=== PATIENT | male | born 2000 | race Caucasian/White ===

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

== ENCOUNTER → 2022-02-21 | Outpatient (REF) | payer BC | LOC: M WUC 09:25 | PROVIDERS: ATTEND Physician Assistant | DX: J02.9 Acute pharyngitis, unspecified (principal) ==

== ENCOUNTER → 2022-02-23 | Outpatient (REF) | payer BC | LOC: M LAB REF 12:00 | PROVIDERS: ATTEND Physician Assistant | DX: B34.9 Viral infection, unspecified (principal) ==

== ENCOUNTER → 2022-04-08 | Outpatient (CLI) | payer BC ==
[2022-04-08 15:39] LABS: BASO # 0.1 10^3/uL (0.0-0.2); BASO % 0.7 % (0.0-1.0); EOS # 0.1 10^3/uL (0.0-0.5); EOS % 1.5 % (0.0-3.0); HEMATOCRIT 47.9 % (42.0-52.0); HEMOGLOBIN 15.8 g/dl (13.5-17.5); LYMPH # 3.3 10^3/uL (1.5-5.0); MEAN CORPUSCULAR VOLUME 84.9 fl (80.0-96.0); MONO # 0.6 10^3/uL (0.0-0.8); NEUTROPHILS # 4.6 10^3/uL (1.5-8.5); NEUTROPHILS % 52.3 % (36.0-66.0); PLATELET COUNT, AUTOMATED 268 10^3/uL (150-450); RED BLOOD COUNT 5.64 10^6/uL (4.30-6.10); WHITE BLOOD COUNT 8.7 10^3/uL (4.0-10.0)
[2022-04-08 16:17] LABS: BLOOD UREA NITROGEN 15 MG/DL (9-23); CALCIUM LEVEL 9.3 MG/DL (8.5-10.1); CARBON DIOXIDE LEVEL 26 MMOL/L (20-31); CHLORIDE LEVEL 102 MMOL/L (98-107); CREATININE FOR GFR 0.77 MG/DL (0.70-1.30); GLUCOSE, FASTING 83 MG/DL (60-100); POTASSIUM SERUM 4.5 MMOL/L (3.5-5.1); SODIUM LEVEL 141 MMOL/L (136-145)
== END ==
LOC: M PLALAB 11:43
PROVIDERS: ATTEND Student in an Organized Health Care Education/Training Program
DX: R53.83 Other fatigue (principal)

== ENCOUNTER → 2022-04-20 | Outpatient (CLI) | payer BC ==
[2022-04-20 14:11] LABS: BILIRUBIN,DIRECT 0.2 MG/DL (<0.4); BILIRUBIN,TOTAL 0.7 MG/DL (0.3-1.2); CHOLESTEROL RISK RATIO 5.16 (<5); HDL CHOLESTEROL 34.3 MG/DL (>40); LDL CHOLESTEROL 106.1 MG/DL (<100); TOTAL PROTEIN 7.1 G/DL (5.7-8.2)
[2022-04-20 14:13] LABS: THYROID STIMULATING HORMONE 4.017 uIU/ML (0.48-4.17)
[2022-04-20 14:23] LABS: HEMOGLOBIN A1c 4.8 % (4.0-6.0)
== END ==
LOC: M PLALAB 10:31
PROVIDERS: ATTEND Student in an Organized Health Care Education/Training Program
DX: Z13.1 Encounter for screening for diabetes mellitus (principal); R53.83 Other fatigue; E66.01 Morbid (severe) obesity due to excess calories

== ENCOUNTER → 2023-05-26 | Outpatient (CLI) | payer BC | LOC: M SLEEP 20:00 | PROVIDERS: ATTEND Physician Assistant | DX: G47.33 Obstructive sleep apnea (adult) (pediatric) (principal); R40.0 Somnolence ==

== ENCOUNTER 2023-06-06 20:17 | Emergency (ER) | payer OTHER, BC ==
[~2023-06-06] VITALS: Ht 190.5 cm; Wt 185.2 kg
[2023-06-06 22:42] VITALS: TEMP 98.6
[2023-06-07] MEDS: IBUPROFEN 600MG TAB PO ONE (06:38)
[2023-06-07 06:43] VITALS: BP 142/83; O2SAT 99
== END 2023-06-07 06:44 | disposition home or self-care (01) ==
LOC: M ED 20:17
DX: M54.50 Low back pain, unspecified (principal)

== ENCOUNTER → 2023-06-15 | Outpatient (CLI) | payer BC ==
[2023-06-15 18:43] LABS: MONO REFLEX EBV VCA IgM NEGATIVE (NEGATIVE)
== END ==
LOC: M PLALAB 16:53
PROVIDERS: ATTEND Student in an Organized Health Care Education/Training Program
DX: R16.1 Splenomegaly, not elsewhere classified (principal)

== ENCOUNTER → 2023-10-13 | Outpatient (CLI) | payer BC ==
[~2023-10-13] MED LIST: C 50TAB PO; MULTTAB61 PO; RISATAB3 PO; VITA100093 PO
[2023-10-13 14:02] LABS: HEMATOCRIT 46.6 % (42.0-52.0); HEMOGLOBIN 15.3 g/dl (13.5-17.5); MEAN CORPUSCULAR HEMOGLOBIN 28.1 pg (27.0-33.0); MEAN CORPUSCULAR HGB CONC 32.8 g/dl (32.0-36.5); MEAN CORPUSCULAR VOLUME 85.5 fl (80.0-96.0); PLATELET COUNT, AUTOMATED 276 10^3/uL (150-450); RED BLOOD COUNT 5.45 10^6/uL (4.30-6.10); WHITE BLOOD COUNT 8.9 10^3/uL (4.0-10.0)
[2023-10-13 14:07] LABS: ALBUMIN 3.7 G/DL (3.2-5.2); ALKALINE PHOSPHATASE 80 U/L (46-116); ALT/SGPT 24 U/L (7.0-40); AST/SGOT 13 U/L (<34); BILIRUBIN,TOTAL 0.6 MG/DL (0.3-1.2); BLOOD UREA NITROGEN 13 MG/DL (9-23); CALCIUM LEVEL 9.5 MG/DL (8.5-10.1); CARBON DIOXIDE LEVEL 29 MMOL/L (20-31); CHLORIDE LEVEL 107 MMOL/L (98-107); CHOLESTEROL LEVEL 177 MG/DL (<200); CHOLESTEROL RISK RATIO 5.41 (<5); CREATININE FOR GFR 0.87 MG/DL (0.70-1.30); GLOMERULAR FILTRATION RATE > 60.0 (>60); GLUCOSE, FASTING 85 MG/DL (60-100); HDL CHOLESTEROL 32.7 MG/DL (>40); LDL CHOLESTEROL 83.9 MG/DL (<100); NON-HDL-C 144.3 MG/DL; POTASSIUM SERUM 4.5 MMOL/L (3.5-5.1); SODIUM LEVEL 141 MMOL/L (136-145); TOTAL PROTEIN 6.9 G/DL (5.7-8.2); TRIGLYCERIDES LEVEL 302 MG/DL (<150)
== END ==
LOC: M PLALAB 10:25
PROVIDERS: ATTEND Student in an Organized Health Care Education/Training Program
DX: I10 Essential (primary) hypertension (principal); E66.01 Morbid (severe) obesity due to excess calories

== ENCOUNTER → 2023-10-13 | Outpatient (CLI) | payer BC | LOC: M SOG 07:59 | PROVIDERS: ATTEND Physician Assistant | DX: M25.571 Pain in right ankle and joints of right foot (principal); R22.41 Localized swelling, mass and lump, right lower limb ==

== ENCOUNTER 2023-10-16 19:32 | Observation (INO) | payer BC ==
[~2023-10-16] VITALS: Ht 190.5 cm; Wt 182.8 kg
[2023-10-16] MEDS: ACETAMINOPHEN 500 MG TAB PO ONE (20:12)
[2023-10-16 20:35] LABS: BASO % 0.2 % (0.0-1.0); EOS % 0.1 % (0.0-3.0); HEMATOCRIT 40.7 % (42.0-52.0); HEMOGLOBIN 14.1 g/dl (13.5-17.5); LYMPH # 2.6 10^3/uL (1.5-5.0); LYMPH % 18.6 % (24.0-44.0); MEAN CORPUSCULAR HEMOGLOBIN 28.6 pg (27.0-33.0); MEAN CORPUSCULAR HGB CONC 34.6 g/dl (32.0-36.5); MEAN CORPUSCULAR VOLUME 82.6 fl (80.0-96.0); MONO # 1.8 10^3/uL (0.0-0.8); MONO % 12.9 % (2.0-8.0); NEUTROPHILS # 9.6 10^3/uL (1.5-8.5); NEUTROPHILS % 67.8 % (36.0-66.0); PLATELET COUNT, AUTOMATED 191 10^3/uL (150-450); RED BLOOD COUNT 4.93 10^6/uL (4.30-6.10); WHITE BLOOD COUNT 14.1 10^3/uL (4.0-10.0)
[2023-10-16 21:01] LABS: ALBUMIN 3.5 G/DL (3.2-5.2); ALKALINE PHOSPHATASE 71 U/L (46-116); ALT/SGPT 15 U/L (7.0-40); AST/SGOT 9 U/L (<34); BLOOD UREA NITROGEN 12 MG/DL (9-23); CALCIUM LEVEL 8.5 MG/DL (8.5-10.1); CARBON DIOXIDE LEVEL 26 MMOL/L (20-31); CHLORIDE LEVEL 101 MMOL/L (98-107); CREATININE FOR GFR 1.14 MG/DL (0.70-1.30); GLOMERULAR FILTRATION RATE > 60.0 (>60); GLUCOSE, FASTING 104 MG/DL (60-100); POTASSIUM SERUM 3.7 MMOL/L (3.5-5.1); SODIUM LEVEL 135 MMOL/L (136-145); TOTAL PROTEIN 6.9 G/DL (5.7-8.2)
[2023-10-16] MEDS ORDERED: ISOVUE-370 76% 100ML VIAL As Ordered ONE (21:18)
[2023-10-16] MEDS: IBUPROFEN 800 MG TAB PO ONE (21:19)
[2023-10-16] MEDS: NS 1,000 ML IV ONE (21:19)
[2023-10-16 21:42] LABS: PROCALCITONIN 0.33 ng/ml
[2023-10-16 22:26] LABS: LIPASE 27 U/L (12-53)
[2023-10-17] MEDS: cefTRIAXone SOD 2 GM in D5W MINI-BAG PLUS 50 ML IV ONE (00:17)
[2023-10-17] MEDS: ONDANSETRON 4MG 2ML VIAL IV ONE (00:35)
[2023-10-17] MEDS: methylPREDNISolone 125MG 2ML VIAL IV ONE (01:04)
[2023-10-17] MEDS: diphenhydrAMINE 50MG/ML VIAL IV ONE (01:04)
[2023-10-17 01:19] LABS: Trichomonas vaginalis (AMP) NOT DETECTED (NEGATIVE)
[2023-10-17] MEDS ORDERED: MULTTAB61 PO (01:23)
[2023-10-17] MEDS ORDERED: RISATAB3 PO (01:23)
[2023-10-17] MEDS ORDERED: C 50TAB PO (01:23)
[2023-10-17] MEDS ORDERED: VITA100093 PO (01:23)
[2023-10-17] MEDS ORDERED: HOME MED LIST COMPLETE! XX SCH (01:25)
[2023-10-17 01:43] LABS: GC DNA AMPLIFICATION NEGATIVE (NEGATIVE)
[2023-10-17] MEDS ORDERED: ACETAMINOPHEN TAB 650MG DOSE (2X325MG) PO PRN (01:55)
[2023-10-17] MEDS: KCL 20MEQ in NS 1000ML 1,000 ML IV SCH (02:29)
[2023-10-17 02:52] VITALS: BP 120/57; TEMP 97.7; O2SAT 97
[2023-10-17 03:29] VITALS: O2SAT 96
[2023-10-17] MEDS: HEPARIN SOD (PORCINE) 5000UNITS/ML 1ML VIAL/SYRINGE SC SCH (05:57)
[2023-10-17 06:52] VITALS: BP 101/47; TEMP 97; O2SAT 97
[2023-10-17 08:00] VITALS: BP 115/69; TEMP 97.5; O2SAT 97
[2023-10-17] MEDS: LevoFLOXacin IV 750 MG in IV 1 EA IV SCH (08:52)
[2023-10-17 10:02] LABS: BASO % 0.1 % (0.0-1.0); HEMATOCRIT 41.2 % (42.0-52.0); HEMOGLOBIN 14.1 g/dl (13.5-17.5); LYMPH % 11.2 % (24.0-44.0); MEAN CORPUSCULAR HEMOGLOBIN 28.4 pg (27.0-33.0); MEAN CORPUSCULAR HGB CONC 34.2 g/dl (32.0-36.5); MEAN CORPUSCULAR VOLUME 83.1 fl (80.0-96.0); MONO # 0.1 10^3/uL (0.0-0.8); MONO % 1.4 % (2.0-8.0); NEUTROPHILS # 7.4 10^3/uL (1.5-8.5); NEUTROPHILS % 86.7 % (36.0-66.0); PLATELET COUNT, AUTOMATED 213 10^3/uL (150-450); RED BLOOD COUNT 4.96 10^6/uL (4.30-6.10); WHITE BLOOD COUNT 8.6 10^3/uL (4.0-10.0)
[2023-10-17] MEDS ORDERED: LEVO1TAB40 PO (10:30)
[2023-10-17 10:31] LABS: BLOOD UREA NITROGEN 13 MG/DL (9-23); CALCIUM LEVEL 8.3 MG/DL (8.5-10.1); CARBON DIOXIDE LEVEL 24 MMOL/L (20-31); CHLORIDE LEVEL 107 MMOL/L (98-107); CREATININE FOR GFR 0.82 MG/DL (0.70-1.30); GLOMERULAR FILTRATION RATE > 60.0 (>60); GLUCOSE, FASTING 166 MG/DL (60-100); POTASSIUM SERUM 4.2 MMOL/L (3.5-5.1); SODIUM LEVEL 140 MMOL/L (136-145)
== END 2023-10-17 12:02 | disposition home or self-care (01) ==
LOC: M ED 19:32 → M ED INP 10-17 01:54 → UNDOADMIN 10-17 01:54 → INTOOBSV 10-17 02:11 → M ED INP 10-17 02:11 → M MSPAV 10-17 02:49
PROVIDERS: ADMIT Preventive Medicine Undersea and Hyperbaric Medicine; ATTEND Internal Medicine
DX: R50.9 Fever, unspecified (principal); R93.422 Abnormal radiologic findings on diagnostic imaging of left kidney; R10.9 Unspecified abdominal pain; R51.9 Headache, unspecified; T36.1X5A Adverse effect of cephalosporins and other beta-lactam antibiotics, initial encounter; R06.02 Shortness of breath; R00.1 Bradycardia, unspecified; I95.9 Hypotension, unspecified; Z87.440 Personal history of urinary (tract) infections; K57.30 Diverticulosis of large intestine without perforation or abscess without bleeding; E66.01 Morbid (severe) obesity due to excess calories; D72.829 Elevated white blood cell count, unspecified; Z88.1 Allergy status to other antibiotic agents
CPT/HCPCS: 36415; 71046; 74177; 80048; 80053; 81001; 83605; 83690; 84145; 85025; 87040; 87086; 87486; 87581; 87633; 87661; 87798; 87810; 87850; 96365; 96375; 99285; J0696; J1200; J1956; J2405; J2919; Q9967

== ENCOUNTER → 2023-10-16 | Outpatient (CLI) | payer BC ==
[~2023-10-16] MED LIST changes: +LEVO1TAB40 PO
[2023-10-16 17:29] LABS: BASO % 0.3 % (0.0-1.0); HEMOGLOBIN 14.5 g/dl (13.5-17.5); LYMPH # 2.1 10^3/uL (1.5-5.0); LYMPH % 13.6 % (24.0-44.0); MEAN CORPUSCULAR HGB CONC 33.7 g/dl (32.0-36.5); MEAN CORPUSCULAR VOLUME 83.2 fl (80.0-96.0); MONO # 1.9 10^3/uL (0.0-0.8); NEUTROPHILS # 11.6 10^3/uL (1.5-8.5); NEUTROPHILS % 73.5 % (36.0-66.0); PLATELET COUNT, AUTOMATED 202 10^3/uL (150-450); RED BLOOD COUNT 5.17 10^6/uL (4.30-6.10); WHITE BLOOD COUNT 15.8 10^3/uL (4.0-10.0)
[2023-10-16 17:54] LABS: BLOOD UREA NITROGEN 13 MG/DL (9-23); CALCIUM LEVEL 8.2 MG/DL (8.5-10.1); CARBON DIOXIDE LEVEL 28 MMOL/L (20-31); CHLORIDE LEVEL 100 MMOL/L (98-107); CREATININE FOR GFR 1.11 MG/DL (0.70-1.30); GLOMERULAR FILTRATION RATE > 60.0 (>60); GLUCOSE, FASTING 95 MG/DL (60-100); MAGNESIUM LEVEL 1.8 MG/DL (1.8-2.4); SODIUM LEVEL 134 MMOL/L (136-145)
[2023-10-16 18:34] LABS: MONO SCRN NEGATIVE (NEGATIVE)
== END ==
LOC: M LAB 16:41 → M PLALAB 16:41
PROVIDERS: ATTEND Student in an Organized Health Care Education/Training Program
DX: R50.9 Fever, unspecified (principal)

== ENCOUNTER → 2023-12-13 | Outpatient (CLI) | payer BC ==
[~2023-12-13] MED LIST changes: +ISOVUE-370 76% 100ML VIAL As Ordered ONE
== END ==
LOC: M RAD 16:57
PROVIDERS: ATTEND Urology
DX: Z87.440 Personal history of urinary (tract) infections (principal)
CPT/HCPCS: 74178; Q9967

== ENCOUNTER 2024-02-17 07:28 | Emergency (ER) | payer BC ==
[~2024-02-17] VITALS: Ht 190.5 cm; Wt 192.0 kg
[~2024-02-17 07:28] MED LIST changes: -ISOVUE-370 76% 100ML VIAL As Ordered ONE
[2024-02-17 07:37] VITALS: O2SAT 99
[2024-02-17] MEDS ORDERED: BACT800T5 PO (10:40)
[2024-02-17 10:53] VITALS: BP 140/60; TEMP 97.8
== END 2024-02-17 10:58 | disposition home or self-care (01) ==
LOC: M ED 07:28
DX: L03.116 Cellulitis of left lower limb (principal); Z88.8 Allergy status to other drugs, medicaments and biological substances; Z79.810 Long term (current) use of selective estrogen receptor modulators (SERMs); Z79.899 Other long term (current) drug therapy

== ENCOUNTER → 2024-03-12 | Outpatient (CLI) | payer BC ==
[~2024-03-12] MED LIST changes: +BACT800T5 PO
== END ==
LOC: M RAD 07:25
PROVIDERS: ATTEND Physician Assistant
DX: M25.571 Pain in right ankle and joints of right foot (principal)

== ENCOUNTER 2024-04-21 20:02 | Emergency (ER) | payer BC ==
[~2024-04-21] VITALS: Ht 190.5 cm; Wt 189.7 kg
[2024-04-21 20:12] VITALS: BP 139/80; TEMP 96.7; O2SAT 100
[2024-04-21 20:38] LABS: BASO % 0.4 % (0.0-1.0); EOS # 0.2 10^3/uL (0.0-0.5); EOS % 1.6 % (0.0-3.0); HEMATOCRIT 44.3 % (42.0-52.0); LYMPH # 4.1 10^3/uL (1.5-5.0); LYMPH % 36.5 % (24.0-44.0); MEAN CORPUSCULAR HEMOGLOBIN 28.6 pg (27.0-33.0); MEAN CORPUSCULAR HGB CONC 33.9 g/dl (32.0-36.5); MEAN CORPUSCULAR VOLUME 84.4 fl (80.0-96.0); MONO # 0.9 10^3/uL (0.0-0.8); MONO % 7.8 % (2.0-8.0); NEUTROPHILS # 5.9 10^3/uL (1.5-8.5); NEUTROPHILS % 53.2 % (36.0-66.0); PLATELET COUNT, AUTOMATED 265 10^3/uL (150-450); RED BLOOD COUNT 5.25 10^6/uL (4.30-6.10); WHITE BLOOD COUNT 11.1 10^3/uL (4.0-10.0)
[2024-04-21 20:54] LABS: CK-MB VALUE MASS 1.2 NG/ML (<3.6); LIPASE 36 U/L (12-53)
[2024-04-21 20:56] LABS: ALBUMIN 3.8 G/DL (3.2-5.2); ALKALINE PHOSPHATASE 84 U/L (40-129); ALT/SGPT 31 U/L (7.0-40); AST/SGOT 25 U/L (<34); BILIRUBIN,DIRECT < 0.1 MG/DL (<0.4); BILIRUBIN,TOTAL 0.4 MG/DL (0.3-1.2); BLOOD UREA NITROGEN 14 MG/DL (9-23); CALCIUM LEVEL 9.3 MG/DL (8.5-10.1); CARBON DIOXIDE LEVEL 27 MMOL/L (20-31); CHLORIDE LEVEL 106 MMOL/L (98-107); CREATININE FOR GFR 0.71 MG/DL (0.70-1.30); GLOMERULAR FILTRATION RATE > 60.0 (>60); GLUCOSE, FASTING 86 MG/DL (60-100); POTASSIUM SERUM 4.2 MMOL/L (3.5-5.1); SODIUM LEVEL 141 MMOL/L (136-145); TOTAL PROTEIN 7.3 G/DL (5.7-8.2)
[2024-04-21 20:58] LABS: FREE T4 1.05 NG/DL (0.89-1.76); THYROID STIMULATING HORMONE 1.709 uIU/ML (0.55-4.78)
[2024-04-21 21:16] LABS: CPK CREATINE PHOSPHOKINASE 315 U/L (46-171); MB/CK RELATIVE INDEX 0.38 (< OR =4)
[2024-04-21] MEDS: KETOROLAC 30 MG/ML 1ML VIAL IV ONE (21:20)
[2024-04-21] MEDS: ACETAMINOPHEN 325 MG TAB PO ONE (23:12)
[2024-04-21] MEDS ORDERED: KETO10TAB PO (23:37)
== END 2024-04-21 23:53 | disposition home or self-care (01) ==
LOC: M ED 20:02
DX: R07.9 Chest pain, unspecified (principal); F10.10 Alcohol abuse, uncomplicated; Z88.8 Allergy status to other drugs, medicaments and biological substances; Z79.2 Long term (current) use of antibiotics; Z79.810 Long term (current) use of selective estrogen receptor modulators (SERMs)
CPT/HCPCS: 71045; 80048; 80076; 82550; 82553; 83690; 83880; 84439; 84443; 84484; 85025; 85379; 93005; 93041; 94760; 96374; 99284; J1885

== ENCOUNTER → 2024-05-15 | Outpatient (REF) | payer BC ==
[~2024-05-15] MED LIST changes: +KETO10TAB PO
== END ==
LOC: M SFHCPLAZ 14:26
PROVIDERS: ATTEND Family Medicine
DX: R07.9 Chest pain, unspecified (principal)

== ENCOUNTER → 2024-05-16 | Outpatient (REF) | payer BC | LOC: M SFHCPLAZ 13:47 | PROVIDERS: ATTEND Student in an Organized Health Care Education/Training Program | DX: R79.89 Other specified abnormal findings of blood chemistry (principal) ==

== ENCOUNTER → 2024-05-17 | Outpatient (CLI) | payer BC ==
[~2024-05-17] MED LIST changes: +ISOVUE-370 76% 100ML VIAL As Ordered ONE
== END ==
LOC: M RAD 07:43
PROVIDERS: ATTEND Student in an Organized Health Care Education/Training Program
DX: R79.89 Other specified abnormal findings of blood chemistry (principal)
CPT/HCPCS: 71275; Q9967

== ENCOUNTER → 2024-07-24 | Outpatient (REF) | payer BC ==
[~2024-07-24] MED LIST changes: -ISOVUE-370 76% 100ML VIAL As Ordered ONE
[2024-07-24 13:34] LABS: BASO # 0.1 10^3/uL (0.0-0.2); BASO % 0.6 % (0.0-1.0); EOS # 0.2 10^3/uL (0.0-0.5); HEMATOCRIT 46.4 % (42.0-52.0); HEMOGLOBIN 15.3 g/dl (13.5-17.5); LYMPH # 3.1 10^3/uL (1.5-5.0); LYMPH % 33.2 % (24.0-44.0); MEAN CORPUSCULAR HEMOGLOBIN 28.2 pg (27.0-33.0); MEAN CORPUSCULAR VOLUME 85.6 fl (80.0-96.0); MONO # 0.8 10^3/uL (0.0-0.8); MONO % 8.3 % (2.0-8.0); NEUTROPHILS # 5.2 10^3/uL (1.5-8.5); NEUTROPHILS % 55.3 % (36.0-66.0); PLATELET COUNT, AUTOMATED 261 10^3/uL (150-450); RED BLOOD COUNT 5.42 10^6/uL (4.30-6.10); WHITE BLOOD COUNT 9.4 10^3/uL (4.0-10.0)
[2024-07-24 13:41] LABS: ALBUMIN 3.9 G/DL (3.2-5.2); ALKALINE PHOSPHATASE 79 U/L (40-129); ALT/SGPT 24 U/L (7.0-40); AST/SGOT 14 U/L (<34); BILIRUBIN,TOTAL 0.3 MG/DL (0.3-1.2); BLOOD UREA NITROGEN 10 MG/DL (9-23); CALCIUM LEVEL 9.2 MG/DL (8.5-10.1); CARBON DIOXIDE LEVEL 29 MMOL/L (20-31); CHLORIDE LEVEL 106 MMOL/L (98-107); CHOLESTEROL LEVEL 193 MG/DL (<200); CHOLESTEROL RISK RATIO 5.34 (<5); CREATININE FOR GFR 0.84 MG/DL (0.70-1.30); GLOMERULAR FILTRATION RATE > 60.0 (>60); GLUCOSE, FASTING 87 MG/DL (60-100); HDL CHOLESTEROL 36.1 MG/DL (>40); LDL CHOLESTEROL 88.1 MG/DL (<100); NON-HDL-C 156.9 MG/DL; POTASSIUM SERUM 4.4 MMOL/L (3.5-5.1); SODIUM LEVEL 142 MMOL/L (136-145); TOTAL 25(OH) VITAMIN D 20.8 NG/ML (20.0-100.0); TOTAL PROTEIN 7.2 G/DL (5.7-8.2); TRIGLYCERIDES LEVEL 344 MG/DL (<150)
[2024-07-24 13:43] LABS: FREE T4 1.17 NG/DL (0.89-1.76)
[2024-07-24 13:51] LABS: HEMOGLOBIN A1c 5.1 % (4.0-6.0)
== END ==
LOC: M SFHCADAM 09:22
PROVIDERS: ATTEND Physician Assistant
DX: I10 Essential (primary) hypertension (principal); G47.33 Obstructive sleep apnea (adult) (pediatric); E78.1 Pure hyperglyceridemia; Z68.43 Body mass index [BMI] 50.0-59.9, adult

== ENCOUNTER 2024-12-03 12:22 | Emergency (ER) | payer BC ==
[~2024-12-03] VITALS: Ht 190.5 cm; Wt 184.5 kg
[2024-12-03] MEDS: ONDANSETRON 4MG ORAL DISINTEGRATING TAB PO ONE (13:21)
[2024-12-03] MEDS: NS (Normal Saline) 0.9% 1,000 ML IV ONE (13:30)
[2024-12-03 14:29] LABS: BASO # 0.0 10^3/uL (0.0-0.2); BASO % 0.3 % (0.0-1.0); EOS # 0.1 10^3/uL (0.0-0.5); EOS % 1.3 % (0.0-3.0); LYMPH # 1.9 10^3/uL (1.5-5.0); LYMPH % 19.5 % (24.0-44.0); MONO # 1.1 10^3/uL (0.0-0.8); MONO % 11.2 % (2.0-8.0); NEUTROPHILS # 6.5 10^3/uL (1.5-8.5); NEUTROPHILS % 67.1 % (36.0-66.0); PLATELET COUNT, AUTOMATED 202 10^3/uL (150-450)
[2024-12-03 15:30] LABS: KETONE, URINE AUTO RFX NEGATIVE (NEGATIVE); LEUKOCYTE ESTERASE UR AUTO RFX NEGATIVE (NEGATIVE); MUCUS, URINE RFX LARGE (NEGATIVE); NITRITE, URINE AUTO RFX NEGATIVE (NEGATIVE); RBC, URINE AUTO RFX 1 /HPF (0-3); SQUAM EPITHELIAL CELL UR AURFX 2 /HPF (0-6); WBC, URINE AUTO RFX 4 /HPF (0-3)
[2024-12-03] MEDS ORDERED: ALIN500T2 PO (17:09)
[2024-12-03 17:18] VITALS: BP 139/81; TEMP 97.6; O2SAT 99
== END 2024-12-03 17:44 | disposition home or self-care (01) ==
LOC: M ED 12:22
DX: A07.2 Cryptosporidiosis (principal); B96.21 Shiga toxin-producing Escherichia coli [E. coli] [STEC] O157 as the cause of diseases classified elsewhere; Z88.8 Allergy status to other drugs, medicaments and biological substances; Z79.899 Other long term (current) drug therapy

== ENCOUNTER → 2024-12-13 | Outpatient (CLI) | payer BC ==
[~2024-12-13] MED LIST changes: +ALIN500T2 PO
[2024-12-13 15:18] LABS: PLATELET COUNT, AUTOMATED 331 10^3/uL (150-450)
[2024-12-13 15:21] LABS: CALCIUM LEVEL 8.8 MG/DL (8.5-10.1); CARBON DIOXIDE LEVEL 27 MMOL/L (20-31); CHLORIDE LEVEL 107 MMOL/L (98-107); CREATININE FOR GFR 0.80 MG/DL (0.70-1.30); GLOMERULAR FILTRATION RATE > 90.0 (>60); POTASSIUM SERUM 4.4 MMOL/L (3.5-5.1); SODIUM LEVEL 144 MMOL/L (136-145)
== END ==
LOC: M PLALAB 11:58
PROVIDERS: ATTEND Physician Assistant
DX: A07.2 Cryptosporidiosis (principal)

== ENCOUNTER → 2025-02-12 | Outpatient (REF) | payer OTHER ==
[2025-02-16 00:46] LABS: ANTITHROMBIN III ACTIVITY 103 % normal (80-135); Prt C Activity(Chromogenic) > 200 % normal (70-180)
[2025-02-16 08:11] LABS: Act Prt C Resist w/FV Defic 3.9 ratio (>=2.1)
[2025-02-16 13:58] LABS: PROTEIN S AG TOTAL 102 % normal (70-140); Protein S Antigen, Free 104 % normal (57-171)
[2025-02-18 01:20] LABS: Factor VIII ACTIVITY,CLOTTING 111 % normal (50-180)
== END ==
LOC: M SFHCADAM 12:30
PROVIDERS: ATTEND Family Medicine
DX: Z82.49 Family history of ischemic heart disease and other diseases of the circulatory system (principal)

== ENCOUNTER → 2025-03-19 | Outpatient (REF) | payer OTHER ==
[2025-03-19 11:07] LABS: SEMEN APPEARANCE OPAQUE (OPAQUE); SEMEN VISCOSITY LIQUID (LIQUID); SEMEN VOLUME 2.3 ml (2.0-5.0); WBC CONCENTRATION >1 M/ml (<=1 M/ml)
[2025-03-19 11:08] LABS: SPERM CONCENTRATION 5.9 M/ml (>=15.0); TOTAL PROGRESSIVE SPERM 0 M/Ejac.
== END ==
LOC: M SFHCWAGY 10:55
PROVIDERS: ATTEND Specialist
DX: N46.9 Male infertility, unspecified (principal)

== ENCOUNTER → 2025-04-18 | Outpatient (CLI) | payer BC, OTHER | LOC: M ADAMS 10:28 | PROVIDERS: ATTEND Family Medicine | DX: M79.672 Pain in left foot (principal) ==